=== PATIENT | male | born 1960 | race Caucasian/White ===

== ENCOUNTER 2017-01-24 08:20 | Day surgery (SDC) | payer BC, OTHER ==
[~2017-01-24 08:20] MED LIST: LIDOCAINE HCL 1% MPF SOL ONE; PROPOFOL 500 MG/50 ML EMU IV ONE
[2017-01-24] MEDS ORDERED: ONDANSETRON HCL 4 MG/2 ML SOL ONE (08:44)
[2017-01-24 10:09] VITALS: TEMP 97.6
[2017-01-24 10:53] VITALS: BP 132/89; PULSE 82; RESP 18; O2SAT 100
== END 2017-01-24 11:06 | disposition home or self-care (01) ==
LOC: SURG 08:20
PROVIDERS: ATTEND Internal Medicine Gastroenterology
DX: Z12.11 Encounter for screening for malignant neoplasm of colon (principal); Z80.0 Family history of malignant neoplasm of digestive organs; Z86.010 Personal history of colon polyps; R13.10 Dysphagia, unspecified; K22.2 Esophageal obstruction; K44.9 Diaphragmatic hernia without obstruction or gangrene; K29.50 Unspecified chronic gastritis without bleeding
CPT/HCPCS: 43239; 43249; 45378; 99001; J2001; J2405; J2704

== ENCOUNTER 2017-01-25 07:08 | Day surgery (SDC) | payer BC ==
[2017-01-25] MEDS ORDERED: ONDANSETRON HCL 4 MG/2 ML SOL ONE (07:43)
[2017-01-25 08:19] VITALS: O2SAT 92
[2017-01-25 08:35] VITALS: BP 144/84; PULSE 92; RESP 20; TEMP 97
== END 2017-01-25 08:55 | disposition home or self-care (01) ==
LOC: SURG 07:08
PROVIDERS: ATTEND Surgery
DX: Z12.11 Encounter for screening for malignant neoplasm of colon (principal); Z86.010 Personal history of colon polyps; Z80.0 Family history of malignant neoplasm of digestive organs
CPT/HCPCS: 45378; J2001; J2405; J2704

== ENCOUNTER → 2018-11-07 | Day surgery (SDC) | payer BC, OTHER ==
[~2018-11-07] MED LIST changes: +BUPIVACAINE/EPI 0.5% 10 ML SOL INFIL ONE; +CEFAZOLIN SODIUM 1 GM PDS ONE; +FENTANYL 100MCG/2ML SOL ONE; +LIDOCAINE HCL 1% MPF 30 SOL ONE; -LIDOCAINE HCL 1% MPF SOL ONE; +ONDANSETRON HCL 4 MG/2 ML SOL ONE
[2018-11-07 10:45] VITALS: RESP 14
[2018-11-07 11:11] VITALS: BP 146/96; PULSE 85; TEMP 98; O2SAT 98
== END | disposition home or self-care (01) | DRG 395 ==
LOC: SURG 07:27
PROVIDERS: ATTEND Surgery
DX: K40.90 Unilateral inguinal hernia, without obstruction or gangrene, not specified as recurrent (principal)
CPT/HCPCS: J0690; J2405; J3010; A6402; C1781; J2001; J2704